=== PATIENT | male | born 1935 | race Caucasian/White ===

== ENCOUNTER 2016-08-30 16:27 | Inpatient (IN) | payer OTHER, MEDICARE ==
[~2016-08-30] VITALS: Ht 182.9 cm; Wt 94.9 kg
[~2016-08-30 16:27] MED LIST: ASPI325T PO; ATEN1TAB73 PO; FISH500C PO; FOLI1TAB PO; GLUCTAB47 PO; LISI2.5T3 PO; MEVA40TA6 PO; TAB-TAB PO; TRAM50 PO
[2016-09-05] MEDS ORDERED: CHLORHEXIDINE GLUCONATE 4% SOLN 120 ML BTL TOP SCH (06:15)
[2016-09-05] MEDS: POVIDONE IODINE 7.5% SCRUB 118 ML BOTTLE TOP SCH (06:15)
[2016-09-05] MEDS ORDERED: INSULIN HUMAN REGULAR 1,000 UNITS/10 ML VIAL SQ PRN (06:15)
[2016-09-05] MEDS ORDERED: METOPROLOL TARTRATE 25 MG TAB PO PRN (06:15)
[2016-09-05] MEDS ORDERED: TRAM50TA PO (06:35)
[2016-09-05] MEDS ORDERED: PRAV40TA2 PO (06:35)
[2016-09-05] MEDS: LACTATED RINGER'S 1000 ML IV SCH (06:35)
[2016-09-05] MEDS ORDERED: LISI-515 PO (06:35)
[2016-09-05] MEDS ORDERED: ATEN50TA PO (06:35)
[2016-09-05] MEDS ORDERED: OMEP20TA PO (06:35)
[2016-09-05] MEDS ORDERED: ASPI325T PO (06:35)
[2016-09-05] MEDS ORDERED: DOXA1TAB36 PO (06:35)
[2016-09-05 06:54] VITALS: BP 127/56; PULSE 57; RESP 20; TEMP 97.5; O2SAT 97
[2016-09-05] MEDS ORDERED: VANCOMYCIN 1000 MG/NS 250 ML (for <70 kg) IV SCH ×2 (07:00)
[2016-09-05 07:04] LABS: BACTERIA, URINE RARE /hpf; BLOOD, URINE NEG (NEG); COMMENT (UR) CULT NOT INDICATED; CULTURE IF INDICATED CULT NOT INDICATED; GLUCOSE,URINE NEG (NEG); HYALINE CAST, URINE 1 /lpf (RARE); KETONE, URINE NEG (NEG); MUCUS URINE FEW /lpf (OCC); NITRITE,URINE NEG (NEG); PH, URINE 5.5 (5.0-8.5); SQUAMOUS EPITHELIAL CELL URINE <1 /hpf (0-5); URIC ACID CRYSTALS, URINE RARE /hpf; URINE COLOR YELLOW (YELLW/STRAW)
[2016-09-05] MEDS ORDERED: HYDR-3288 PO (07:24)
[2016-09-05] MEDS ORDERED: APIX2.5T PO (07:24)
[2016-09-05] MEDS ORDERED: diphenhydrAMINE HCL 50 MG/ML VIAL IV PRN (07:30)
[2016-09-05] MEDS ORDERED: BISACODYL 10 MG SUPP PR PRN (07:30)
[2016-09-05] MEDS ORDERED: ACETAMINOPHEN/HYDROcodone 325 MG/7.5 MG TAB PO PRN ×2 (07:30)
[2016-09-05] MEDS ORDERED: Post-op Orders (for Pharmacy) MISC XX ONE (07:30)
[2016-09-05] MEDS ORDERED: ZOLPIDEM TARTRATE 5 MG TAB PO PRN (07:30)
[2016-09-05] MEDS ORDERED: DEXAMETHASONE SOD PHOS 20 MG/5 ML VIAL IV SCH (07:30)
[2016-09-05] MEDS ORDERED: MAGNESIUM HYDROXIDE SUSP 30 ML CUP PO PRN (07:30)
[2016-09-05] MEDS ORDERED: MORPHINE SULFATE 4 MG/ML INJ IV PUSH PRN (07:30)
[2016-09-05] MEDS ORDERED: NALOXONE HCL 0.4 MG/ML AMP IV PRN (07:30)
[2016-09-05] MEDS ORDERED: SODIUM CHLORIDE 0.9% FLUSH 5 ML FLUSH IVF PRN (07:30)
[2016-09-05] MEDS ORDERED: ONDANSETRON HCL 4 MG/2 ML VIAL IVP PRN (07:30)
[2016-09-05] MEDS ORDERED: ALUMINUM/MAGNESIUM/SIMETH 30 ML CUP PO PRN (07:30)
[2016-09-05] MEDS ORDERED: ceFAZolin 2 GM PREMIX 50 ML IV SCH (07:30)
[2016-09-05] MEDS ORDERED: GENTAMICIN SULFATE 80 MG/2 ML VIAL ONE ×2 (08:14→10:08)
--- NOTE | 2016-09-05 08:27 | EKG ---
Date Performed: 09/05/2016 Time Performed: 07:04:42 PTAGE: 81 years EKG: SINUS BRADYCARDIA BORDERLINE ECG PREVIOUS TRACING : 03/19/2009 19.54 No significant change from previous tracing noted. DOCTOR: Blake Skaggs Interpretating Date/Time 09/05/2016 08:26:17
[2016-09-05] MEDS: TRANEXAMIC ACID IV SCH ×2 (08:30→10:15)
[2016-09-05] MEDS: TRANEXAMIC PERI-ARTICULAR 3,000 MG/NS 100 ML P-ARTICULR SCH ×4 (08:30→10:10)
[2016-09-05] MEDS: ROPIVACAINE PERI-ARTICULAR INJECTION. PERIART SCH ×10 (08:30→10:15)
[2016-09-05] MEDS ORDERED: EXPAREL PERI-ARTICULAR INJECTION (TOTAL VOL. 60 ML) P-ARTICULR SCH ×2 (08:30)
[2016-09-05] MEDS ORDERED: MIDAZOLAM HCL 2 MG/2 ML VIAL ONE (08:30)
[2016-09-05] MEDS ORDERED: SODIUM CHLORID 0.9% 500 ML IV SCH (08:30)
[2016-09-05] MEDS: SODIUM CHLORIDE 0.9% IV SCH ×2 (08:30→10:15)
[2016-09-05] MEDS: SODIUM CHLORIDE 0.9% FLUSH 5 ML FLUSH IVF SCH ×2 (09:00→21:00)
[2016-09-05] MEDS: PANTOPRAZOLE SOD 20 MG DELAYED RELEASE TAB PO SCH (09:00)
[2016-09-05] MEDS: LISINOPRIL 20 MG TAB PO SCH (09:00)
[2016-09-05] MEDS: SODIUM CHLOR 0.9% 1000 ML INJ 1,000 ML IV SCH ×2 (11:00→17:21)
[2016-09-05] MEDS ORDERED: DO NOT ADM ANY ANTICOAGULANT DRUGS XX PRN (11:02)
[2016-09-05] MEDS ORDERED: PROPOFOL 200 MG/20 ML AMP IV ONE (12:00)
[2016-09-05] MEDS ORDERED: LACTATED RINGER'S 1000 ML INJ 2,000 ML IV ONE (12:00)
[2016-09-05] MEDS ORDERED: ePHEDrine/NS 50 MG/5 ML SYR IV ONE (12:00)
--- NOTE | 2016-09-05 12:03 | RADRPT ---
EXAM DATE/TIME: 09/05/2016 11:25 [place] COMPARISON: No previous studies available for comparison. INDICATIONS : Post op right knee replacement. MEDICAL HISTORY : None. SURGICAL HISTORY : None. ENCOUNTER: Initial ACUITY: 1 day PAIN SCORE: 0/10 LOCATION: Right Knee FINDINGS: There is a total knee prosthesis in place well-seated with air in soft tissues postoperatively anteri vito and drain in place CONCLUSION: Total knee prosthesis well seated Nick Hollingsworth MD on September 05, 2016 at 12:02 Board Certified Radiologist. This report was verified electronically.
[2016-09-05] MEDS ORDERED: BUPIVACAINE HCL PF 0.5% 30 ML VIAL NB ONE (12:29)
[2016-09-05 12:45] VITALS: BP 132/63; PULSE 67; RESP 16; TEMP 96.9; O2SAT 95
[2016-09-05] MEDS ORDERED: ENALAPRILAT 1.25 MG/ML VIAL IV PUSH PRN (15:45)
--- NOTE | 2016-09-05 15:50 | PD.CONS ---
HPI Service [facility] Consult Requested By Dr. Anderson Reason for Consult Medical management Primary Care Physician Darin Calvillo DO Diagnoses: History of Present Illness The patient is an 81-year-old male with a past medical history of CAD and lung cancer who is presenting to the hospital for an elective right knee replacement. The patient says that his right knee has been bothering him for the past 15-18 years. He says over that time he has tried numerous treatments. He has been taking glucosamine as well as tramadol and Tylenol. He says when he loses weight seems to help with the knee pain. He says over the last couple of years his pain has gotten worse. In May of last year the pain really started to get to the point where he decided he wanted to pursue surgery. He says he ambulates without a cane or walker. He is able to go up and down stairs slowly. He says that his left hip has been starting to hurt him, he thinks that may be because he's been putting too much pressure on it because his right knee has been hurting so much. The patient was seen following surgery and he says his pain is well-controlled. He had no nausea. He says he was already working with physical therapy. He is looking forward to going home soon. He says his daughters are visiting to help him around the house. Review of Systems Constitutional: DENIES: Fever Respiratory: DENIES: Shortness of breath Cardiovascular: DENIES: Chest pain Gastrointestinal: DENIES: Constipation, Diarrhea Musculoskeletal: COMPLAINS OF: Joint pain, Stiffness, Joint Swelling Integumentary: DENIES: Rash Neurologic: COMPLAINS OF: Abnormal gait, Poor Balance Past Family Social History Allergies: Coded Allergies: Codeine (Unverified Allergy, Intermediate, CONSTIPATION, 09/05/16) Levaquin (Unverified Allergy, Intermediate, LETHARGIC, 09/05/16) Past Medical History CAD status post stent to the RCA in 2009 Lung cancer status post surgery in remission Hypertension Active Ordered Medications Current Medications Medications (Trade) Dose Ordered Sig/Alejandro Route Start Time Stop Time Status Last Admin Lactated Ringer's 1,000 ml @ 30 mls/hr Q24H IV 09/05/16 08:30 09/05/16 06:35 (NS 500 ml Inj) 500 ml @ 30 mls/hr [id number] IV 09/05/16 08:30 09/06/16 08:29 (Betadine 7.5% Scrub) 1 applic ONCE TOP 09/05/16 06:15 09/08/16 06:14 09/05/16 06:15 (Hibiclens 4% Top Soln) 1 applic ONCE TOP 09/05/16 06:15 09/08/16 06:14 (Tenormin) 50 mg HS PO 09/05/16 21:00 (Cardura) 1 mg HS PO 09/05/16 21:00 (Prinivil) 20 mg DAILY PO 09/05/16 09:00 (Protonix) 20 mg DAILY PO 09/05/16 09:00 Pravastatin Sodium 40 mg 40 mg HS PO 09/05/16 21:00 (NS 1000 ml Inj) 1,000 ml @ 100 mls/hr Q10H IV 09/05/16 07:21 09/05/16 11:00 (NS Flush) 2 ml UNSCH PRN IVF 09/05/16 07:30 IV Flush 2 ml 2 ml BID IVF 09/05/16 09:00 (Ancef Inj/NS Inj) 100 ml @ 200 mls/hr Q6H IV 09/05/16 12:00 09/06/16 00:29 09/05/16 11:48 (Lovenox Inj) 40 mg Q24H SQ 09/06/16 10:00 (Morphine Inj) 3 mg Q3H PRN IV PUSH 09/05/16 07:30 ([place] 7.5-325 Mg) 1 tab Q4H PRN PO 09/05/16 07:30 ([place] 7.5-325 Mg) 2 tab Q4H PRN PO 09/05/16 07:30 (Theragran M Tab) 1 tab BID PO 09/06/16 21:00 11/05/16 20:59 (Zofran Inj) 4 mg Q6H PRN IVP 09/05/16 07:30 (Colace) 100 mg BID PO 09/06/16 21:00 (Mag-Al Plus Susp Liq) 30 ml Q6H PRN PO 09/05/16 07:30 (Ambien) 5 mg HS PRN PO 09/05/16 07:30 (Dulcolax Supp) 10 mg DAILY PRN MA 09/05/16 07:30 (Milk Of Magnesia Liq) 30 ml DAILY PRN PO 09/05/16 07:30 (Narcan Inj) 0.4 mg UNSCH PRN IV 09/05/16 07:30 (Benadryl Inj) 25 mg Q6H PRN IV 09/05/16 07:30 Miscellaneous Information ALL NURSING DEPARTME... UNSCH PRN XX 09/05/16 11:02 09/06/16 11:01 (Vasotec Inj) 1.25 mg Q6H PRN IV PUSH 09/05/16 15:45 (Senokot) 17.2 mg DAILY PO 09/06/16 09:00 Family History His father had throat cancer His mother had stomach cancer Social History The patient does not smoke. He drinks 2-3 ounces of alcohol daily. Physical Exam Vital Signs Vital Signs Date Time Temp Pulse Resp B/P Pulse Ox O2 Delivery O2 Flow Rate FiO2 09/05/16 12:00 60 16 120/77 97 Room Air 09/05/16 11:45 64 16 138/54 96 Room Air 09/05/16 11:30 60 16 130/65 99 09/05/16 11:15 58 16 134/58 98 Nasal Cannula 2 09/05/16 11:00 97.6 72 16 132/57 95 Nasal Cannula 2 09/05/16 06:54 97.5 57 20 127/56 97 Physical Exam GENERAL: This is a well-nourished, well-developed patient, in no apparent distress. SKIN: No rashes, ecchymoses or lesions. Cool and dry. HEAD: Atraumatic. Normocephalic. No temporal or scalp tenderness. EYES: Pupils equal round and reactive. Extraocular motions intact. No scleral icterus. No injection or drainage. ENT: Nose without bleeding, purulent drainage or septal hematoma. Throat without erythema, tonsillar hypertrophy or exudate. Uvula midline. Airway patent. NECK: Trachea midline. No JVD or lymphadenopathy. Supple, nontender, no meningeal signs. CARDIOVASCULAR: Regular rate and rhythm without murmurs, gallops, or rubs. RESPIRATORY: Clear to auscultation. Breath sounds equal bilaterally. No wheezes , rales, or rhonchi. GASTROINTESTINAL: Abdomen soft, non-tender, nondistended. No hepato-splenomegaly , or palpable masses. No guarding. MUSCULOSKELETAL: Right knee is bandaged and swollen. Nontender to palpation. NEUROLOGICAL: Awake and alert. Cranial nerves II through XII intact. Motor and sensory grossly within normal limits. Five out of 5 muscle strength in all muscle groups. Normal speech. PSYCH: Mood and affect appropriate. Laboratory Laboratory Tests Test 09/05/16 09/05/16 06:30 06:40 Urine Color YELLOW Urine Turbidity CLOUDY Urine pH 5.5 Urine Specific [place] 1.022 Urine Protein TRACE Urine Glucose (UA) NEG Urine Ketones NEG Urine Occult Blood NEG Urine Nitrite NEG Urine Bilirubin NEG Urine Urobilinogen LESS THAN 2.0 Urine Leukocyte Esterase NEG Urine RBC 1 Urine WBC 1 Urine Squamous Epithelial <1 Cells Urine Uric Acid Crystals RARE Urine Bacteria RARE Urine Hyaline Casts 1 Urine Mucus FEW Microscopic Urinalysis Comment CULT NOT INDICATED Blood Type O POSITIVE Antibody Screen NEGATIVE Imaging Last Impressions Knee X-Ray 09/05/16 0721 Signed Impressions: Service Date/Time: Monday, September 05, 2016 11:25 - CONCLUSION: Total knee prosthesis well seated Nick Hollingsworth MD Assessment and Plan Assessment and Plan Severe osteoarthritis of right knee S/p surgical repair 09/05. He tolerated the procedure well. His left hip has started to hurt, likely s/t compensation when ambulating. - wound care and anticoagulation per orthopedic surgery. - pain control with a bowel regimen. - incentive spirometry. - physical therapy. HTN Blood pressure well controlled at this time. - continue lisinopril and atenolol. - Vasotec as needed. CAD S/p stent to RCA in 2009. Asymptomatic at this time. EKG without evidence of ischemia. - continue medication regimen. Lung cancer S/p surgery. In remission. - outpt follow-up. PPx: Per orthopedic surgery. Discussed Condition With Pt. Kendall Givens DO Sep 05, 2016 15:50
[2016-09-05 16:11] VITALS: O2SAT 95
[2016-09-05 16:24] VITALS: BP 129/70; PULSE 71; RESP 18; TEMP 96.9; O2SAT 96
[2016-09-05 20:00] VITALS: BP 101/53; PULSE 71; RESP 18; TEMP 96.6; O2SAT 97
[2016-09-05] MEDS ORDERED: DOXAZOSIN MESYLATE 1 MG TAB PO SCH (21:00)
[2016-09-05] MEDS ORDERED: PRAVASTATIN SOD 40 MG TAB PO SCH (21:00)
[2016-09-05] MEDS ORDERED: ATENOLOL 50 MG TAB PO SCH (21:00)
[2016-09-06] VITALS: BP 117/68; PULSE 67; RESP 16; TEMP 96.7; O2SAT 97
[2016-09-06] MEDS: SODIUM CHLOR 0.9% 1000 ML INJ 1,000 ML IV SCH ×2 (03:21→13:21)
[2016-09-06] MEDS: POVIDONE IODINE 7.5% SCRUB 118 ML BOTTLE TOP SCH (03:25)
[2016-09-06 04:00] VITALS: BP 121/66; PULSE 106; PULSE 66; RESP 17; TEMP 96.5; O2SAT 95
[2016-09-06 06:10] LABS: HEMATOCRIT 35.6 % (39.0-51.0); MEAN CELL VOLUME 94.4 FL (80.0-100.0); MEAN CORPUSCULAR HEMOGLOBIN 33.1 PG (27.0-34.0); PLATELET COUNT 97 TH/MM3 (150-450); RED BLOOD COUNT 3.77 MIL/MM3 (4.50-5.90); RED CELL DISTRIBUTION WIDTH 12.3 % (11.6-17.2); WHITE BLOOD COUNT 7.9 TH/MM3 (4.0-11.0)
[2016-09-06 06:29] LABS: BICARBONATE 23.3 MEQ/L (21.0-32.0); POTASSIUM 4.5 MEQ/L (3.5-5.1)
[2016-09-06 06:37] LABS: REVIEW FLAG FINAL
[2016-09-06 08:00] VITALS: BP 147/70; PULSE 69; RESP 16; TEMP 95.9; O2SAT 100
[2016-09-06 08:30] VITALS: O2SAT 96
[2016-09-06] MEDS: LACTATED RINGER'S 1000 ML IV SCH (08:30)
--- NOTE | 2016-09-06 08:31 | PD.ORT.PN ---
Subjective Post Op Day #: 1 Subjective Remarks denies pain. did well with PT yesterday. Objective Vitals Vital Signs Date Time Temp Pulse Resp B/P Pulse Ox O2 Delivery O2 Flow Rate FiO2 09/06/16 04:00 96.5 66 17 121/66 95 09/06/16 00:00 96.7 67 16 117/68 97 09/05/16 20:00 96.6 71 18 101/53 97 09/05/16 16:24 96.9 71 18 129/70 96 09/05/16 16:11 95 21 09/05/16 12:45 96.9 67 16 132/63 95 09/05/16 12:00 60 16 120/77 97 Room Air 09/05/16 11:45 64 16 138/54 96 Room Air 09/05/16 11:30 60 16 130/65 99 09/05/16 11:15 58 16 134/58 98 Nasal Cannula 2 09/05/16 11:00 97.6 72 16 132/57 95 Nasal Cannula 2 I/O 09/05/16 09/05/16 09/05/16 09/06/16 09/06/16 09/06/16 07:00 15:00 23:00 07:00 15:00 23:00 Intake Total 500 ml 623 ml 827 ml Output Total 50 ml 250 ml 350 ml Balance 450 ml 373 ml 477 ml Intake Oral 240 ml 240 ml IV Total 500 ml 383 ml 587 ml Output Urine Total 50 ml 250 ml 350 ml # Bowel Movements 0 0 Result Diagram: 09/06/16 0536 09/06/16 0536 Objective Remarks in bed, nad incision no erythema, no drainage demonstrates straight leg raise neg homans nvi Assessment & Plan Ortho Post Op Day #: 1 Problem List: Assessment and Plan s/p R TKA wbat daily dressing changes lovenox - d/c on Eliquis d/c planning home with [facility] and pt - cleared today if does well in PT rx in chart f/up dr. louis 2 weeks Rei Brennan Sep 06, 2016 08:31
--- NOTE | 2016-09-06 08:33 | HHI.FF ---
Face to Face Verification Diagnosis: (1) Primary localized osteoarthrosis, lower leg Physical Therapy Gait training, Safety evaluation, Transfer training, bed to chair Knee: Total knee, Protocol: Right, Full weight bearing Right LE Weight Bearing: WB as tolerated Nursing RN: 3 days/week x 2 weeks Nursing: Dressing changes Dressing Changes: Daily dressing change I have seen patient Calixto Kang on 09/06/16. My clinical findings support the need for the requested home health care services because: Limited ability to care for self High risk of falls I certify that my clinical findings support that this patient is homebound because: Post-op weakness Unsteady gait/balance Rei Brennan Sep 06, 2016 08:33
--- NOTE | 2016-09-06 08:33 | HHI.DCPOC ---
Discharge Care Plan Diagnosis: (1) Primary localized osteoarthrosis, lower leg Your Health Problems Are: Difficulty with ADL Goals to Promote Your Health * To prevent worsening of your condition and complications * To maintain your health at the optimal level Directions to Meet Your Goals Take your medications as prescribed Follow your dietary instruction Follow activity as directed Keep your appointments as scheduled Take your immunizations and boosters as scheduled If your symptoms worsen call your PCP, if no PCP go to Urgent Care Center or Emergency Room Smoking is Dangerous to Your Health. Avoid second hand smoke Call the 24-hour hour crisis hotline for domestic abuse at Rei Brennan Sep 06, 2016 08:33
[2016-09-06] MEDS ORDERED: SENNOSIDES 8.6 MG TAB PO SCH (09:00)
[2016-09-06] MEDS: LISINOPRIL 20 MG TAB PO SCH (09:29)
[2016-09-06] MEDS: SODIUM CHLORIDE 0.9% FLUSH 5 ML FLUSH IVF SCH (09:29)
[2016-09-06] MEDS: PANTOPRAZOLE SOD 20 MG DELAYED RELEASE TAB PO SCH (09:29)
[2016-09-06] MEDS ORDERED: ENOXAPARIN SODIUM 40 MG/0.4 ML SYRINGE SQ SCH (10:00)
[2016-09-06 12:00] VITALS: BP 117/53; PULSE 65; RESP 16; TEMP 95.8; O2SAT 98
[2016-09-06 16:00] VITALS: BP 109/47; PULSE 65; RESP 16; TEMP 97; O2SAT 100
[2016-09-06] MEDS ORDERED: MULTIVITAMINS/MINERALS THERAPEUTIC TAB PO SCH (21:00)
[2016-09-06] MEDS ORDERED: DOCUSATE SODIUM 100 MG CAP PO SCH (21:00)
--- NOTE | 2016-09-08 11:11 | MP ---
cc: OSMIN AWAD DATE OF SURGERY: 09/05/2016 PREOPERATIVE DIAGNOSIS: Right knee osteoarthritis. POSTOPERATIVE DIAGNOSIS: Right knee osteoarthritis. OPERATION: Right total knee arthroplasty. SURGEON: Osmin Awad MD. MOTOR OVERHAULER: JOHANN Sung. SURGEON Dr. Osmin Awad first JOHANN Sung ANESTHESIA Spinal. ESTIMATED BLOOD LOSS: 50 cc COMPLICATIONS None. IMPLANTS USED: DePuy two inch size eight. Posterior femoral component size nine rotating platform tibia baseplate, size 6 mm polyethylene tibial insert size 38 mm patella. JUSTIFICATION: The patient is a 81-year-old male with a history of severe end-stage osteoarthritis involving the right knee. He has severe disabling pain with standing, walking, which with activities severe pain at rest. He has failed greater than 3 months of nonoperative conservative treatment to include, medication, therapy, injections, ambulatory assisted aids, exercise program. Activity modification. The patient not overweight. X-rays of the right knee reveal severe end-stage osteoarthritis with [id number] joint space narrowing, subchondral sclerosis, subchondral cyst osteophyte formation with varus deformity. The patient was counseled as and alternative total knee arthroplasty. The risks and willing to anesthesia, infection damage to blood vessels, pain, stiffness, crackles failure of components, blood clots, pulmonary embolism, even . The patient's pain is severe he favored benefits of the risk. PROCEDURE IN DETAIL: A written consent was obtained. The patient identified by name, taken to the supine on the spinal anesthesia was administered. The patient as well as 2 grams of IV Ancef and 1 gram of IV vancomycin a well-padded tourniquet placed in the right thigh. The right lower tree prepped and draped using isopropyl alcohol, Hibiclens solution and Chloraprep solution. An Esmarch bandage was used to exsanguinate the right lower extremity and tourniquet inflated to 250 mmHg. Once incision made over the anterior aspect of right knee medial parapatellar arthrotomy was performed tunnel was everted. A patellar resection guide was used to resect 9.5 mm of patella. The size 38 mm guide was placed three drill holes were placed and 38 mm trial fit well. Attention was turned to the femur where an intramedullary guide lacy was placed. The distal femoral guide was set at 5 degrees anatomic valgus axis alignment and 10 mm of distal femur was resected with an oscillating saw. Attention turned to the tibia where extramedullary tibial guide was set to resect 5 mm of the lowest portion of the medial tibial plateau. A guide was pinned in place and tibia cut was performed an oscillating saw. A 5-mm spacer block showed full extension. Attention turned back to the femur where AP sizer block measured a size eight. The anterior first 3 degrees X rotation guide was used to pin a size [address]. The anterior fire apparatus engineer chamfer cuts were performed a size eight PCL box guide was pinned in place and PCL box of an oscillating saw. The medial lateral meniscus remnants were removed as well as bone and soft tissue debris from the posterior portion of the knee. A size nine tibia base plate was pinned in place. The tibia was drilled construct was evaluated and was cemented in place with the 6-mm tibial insert leg achieved full extension 0 degrees of flexion 140, no evidence of tibial lift-off. Varus-valgus balance appeared appropriate symmetric. The patella was noted track centrally. The tourniquet deflated. Bovie cautery was used hemostasis. The knee was thoroughly irrigated sterile saline pulse lavage antibiotic impregnated solution. The arthrotomy incision was closed on 1-0 Vicryl suture. The subcutaneous layer with 2-0 Vicryl suture. Skin was closed Dermabond. Sterile dressing applied. The patient tolerated the procedure well. No intraoperative his noted. Cricket Brennan physician cancer genetics assistant was present during seizure to include patient positioning procedure. The medical necessity of a physician cancer genetics assistant indicated due to complexity of the procedure he assisted with appropriate manipulation of the leg and also traction of muscle tendon bone neurovascular structure. He assisted with preparation of bone and implantation of the prosthetic replacement. MD JAYDE Markham/rahul /10:37 AM /11:05 AM
--- NOTE | 2016-09-13 08:28 | MD ---
cc: OSMIN AWAD M.D. ADMISSION DATE: 09/05/2016 DISCHARGE DATE: 09/06/2016 ADMISSION DIAGNOSIS Severe degenerative osteoarthritis right knee. DISCHARGE DIAGNOSIS Severe degenerative osteoarthritis right knee. HISTORY OF PRESENT ILLNESS Mr. Kang is an 81-year-old male who presented to the [facility] for evaluation by Dr. Osmin Awad regarding his progressive right knee pain. The patient states the pain has been bothering him for several years for which he has been treated for this ailment for greater than 6 months duration. He states the pain is aggravated weightbearing activities and is currently inhibiting his activities of daily living. He has no significant alleviating factors at this point in time. In the past he has tried medications, bracing, physical therapy, weight loss attempts and multiple corticosteroid injections without significant relief of symptoms. He does have x-ray evidence of severe degenerative osteoarthritis of the right knee. While in the office the patient was counseled on his diagnosis and treatment options. The risks, benefits and indications all were discussed. The patient did elect to proceed with surgical intervention to include a right total knee arthroplasty. DATE OF SURGERY 09/05/2016 PROCEDURE PERFORMED Right total knee arthroplasty. POSTOP After surgery the patient was admitted to [facility] where he received appropriate medical management, pain control, DVT prophylaxis as well as physical therapy. DISCHARGE The patient has been discharged from the hospital. He has been discharged home where he will receive home health care and home physical therapy. He is in stable condition. The patient may weight-bear as tolerated. The patient has been instructed on appropriate wound care management and has been instructed to have daily dressing changes. He has been provided prescriptions for pain control as well as DVT prophylaxis medication. He has also been provided a follow-up appointment to see Dr. Osmin Awad in the office approximately two weeks from his date of surgery. The patient has asked appropriate questions which have all been answered. The patient has been discharged. Dictated by: Cricket Brennan PA-C Osmin Awad MD JWM/EDWARD /8:08 AM /8:23 AM
== END 2016-09-06 17:38 | disposition home health service (06) | DRG 470 ==
LOC: HSDI 09-05 05:42 → N06B 09-05 12:46
PROVIDERS: ADMIT Orthopaedic Surgery Sports Medicine; ATTEND Orthopaedic Surgery Sports Medicine
PROC: 0QRD0JZ Replacement of Right Patella with Synthetic Substitute, Open Approach (ICD-10-PCS; 2016-09-05)
PROC: 3E0T3CZ (ICD-10-PCS; 2016-09-05)
PROC: 0SRC0J9 Replacement of Right Knee Joint with Synthetic Substitute, Cemented, Open Approach (ICD-10-PCS; principal; 2016-09-05 08:42)
DX: M17.11 Unilateral primary osteoarthritis, right knee (principal); I10 Essential (primary) hypertension; E78.5 Hyperlipidemia, unspecified; I25.10 Atherosclerotic heart disease of native coronary artery without angina pectoris; Z85.118 Personal history of other malignant neoplasm of bronchus and lung; Z88.5 Allergy status to narcotic agent; Z88.1 Allergy status to other antibiotic agents; Z87.891 Personal history of nicotine dependence; Z95.5 Presence of coronary angioplasty implant and graft
CPT/HCPCS: 73560; 80048; 81001; 85027; 86850; 86900; 86901; 93005; 94150; C1776; J0171; J0690; J0735; J1100; J1580; J1650; J1885; J2250; J2795; J3370; J7030; J7050; J7120; L1830